=== PATIENT | male | born 1950 | race Two or more races ===

== ENCOUNTER 2019-01-15 05:04 | Emergency (ER) | payer OTHER ==
[2019-01-15] MEDS ORDERED: ONDANSETRON HCL/PF 4 MG/2 ML VIAL ONE (05:21)
[2019-01-15] MEDS ORDERED: ONDANSETRON HCL/PF 4 MG/2 ML VIAL IVP ONE (05:30)
[2019-01-15] MEDS ORDERED: HYDROMORPHONE 1 MG/1 ML DISP.SYRIN IV ONE ×2 (05:30→09:00)
[2019-01-15] MEDS ORDERED: IV NS 0.9% 1,000 ML BAG IV ONE ×2 (05:30)
[2019-01-15] MEDS ORDERED: HYDROMORPHONE INJ 2 MG/ML DISP.SYRIN ONE (06:02)
[2019-01-15] MEDS ORDERED: HYDROMORPHONE 1 MG/1 ML DISP.SYRIN ONE (08:53)
== END 2019-01-15 10:55 ==
DX: R55 Syncope and collapse (principal); R94.31 Abnormal electrocardiogram [ECG] [EKG]; I10 Essential (primary) hypertension; I25.10 Atherosclerotic heart disease of native coronary artery without angina pectoris; E11.9 Type 2 diabetes mellitus without complications; E78.5 Hyperlipidemia, unspecified; Z98.890 Other specified postprocedural states; Z95.1 Presence of aortocoronary bypass graft
CPT/HCPCS: 36415; 70450; 71045; 72125; 72128; 72131; 80048; 80076; 82962; 84484; 85025; 85730; 93005; 96361; 96374; 96375; 96376; 99285; J1170 ×2; J2405; J7030 ×2